=== PATIENT | female | born 1990 | race African-American/Black ===

== ENCOUNTER 2016-04-15 16:53 | Emergency (ER) | payer MEDICAID ==
[~2016-04-15] VITALS: Ht 157.5 cm; Wt 45.0 kg
[~2016-04-15 16:53] MED LIST: CEPH500C3 PO
[2016-04-15 16:54] VITALS: BP 107/71; PULSE 93; RESP 15; TEMP 98.1; O2SAT 99
[2016-04-15 20:28] LABS: BLOOD, URINE NEG (NEG); GLUCOSE,URINE NEG (NEG); KETONE, URINE NEG (NEG); MUCUS URINE FEW /lpf (OCC); NITRITE,URINE NEG (NEG); PH, URINE 6.5 (5.0-8.5); SQUAMOUS EPITHELIAL CELL URINE 8 /hpf (0-5); URINE COLOR YELLOW (YELLW/STRAW)
[2016-04-15] MEDS ORDERED: IBUP-988 PO (21:26)
--- NOTE | 2016-04-15 21:28 | PD ---
HPI Chief Complaint: Abdominal Pain Time Seen by Provider: 19:22 Travel History International Travel<30 days: No Contact w/Intl Traveler<30days: No Traveled to known affect area: No History of Present Illness HPI 25-year-old female 0 complains of right low quadrant abdominal pain for one week. She's had no nausea vomiting or fever. She's had no diarrhea. She reports a history of a UTI about a week and a half ago or so. She received Keflex and Diflucan. She took both however reportedly ran out of the Keflex before was finished. Last menstruation was just under 4 weeks prior. She reports a history of ovarian cysts in the past had similar type of pain however those remaining years prior. She denies a past medical/surgical history otherwise. She has no drug allergies. She does not smoke. She states she drinks alcohol about every other day. Her appetite has been normal lately. She does report some white vaginal discharge, unusual for her. PFSH Past Medical History Medical History: Denies Significant Hx Tetanus Vaccination: Unknown Influenza Vaccination: No ?: Not LMP: MAR 18 2016 Past Surgical History Surgical History: No Previous Surgery Social History Alcohol Use: No Tobacco Use: No Substance Use: No Allergies-Medications (Allergen,Severity, Reaction): Coded Allergies: No Known Allergies (Unverified , 04/15/16) Reported Meds & Prescriptions Reported Meds & Active Scripts Active No Active Prescriptions or Reported Medications Review of Systems Except as stated in HPI: all other systems reviewed are Neg General / Constitutional: No: Fever, Chills Gastrointestinal: Positive: Abdominal Pain Genitourinary: Positive: Pelvic Pain Physical Exam Narrative GENERAL: 25-year-old female pleasant no acute distress GENITOURINARY: External genitalia appear normal. Minimal to moderate somewhat thick white discharge in the vaginal vault. No significant CMT. There is minimal tenderness in the right lower quadrant externally without adnexal mass or tenderness on either side. SKIN: Warm and dry. HEAD: Atraumatic. Normocephalic. EYES: Pupils equal and round. No scleral icterus. No injection or drainage. ENT: No nasal bleeding or discharge. Mucous membranes pink and moist. NECK: Trachea midline. No JVD. CARDIOVASCULAR: Regular rate and rhythm. No murmur appreciated. RESPIRATORY: No accessory muscle use. Clear to auscultation. Breath sounds equal bilaterally. GASTROINTESTINAL: Soft. Minimal tenderness in the right lower quadrant. No rebound. No obturator sign. No pain with percussion on the heels. MUSCULOSKELETAL: No obvious deformities. No clubbing. No cyanosis. No edema. NEUROLOGICAL: Awake and alert. No obvious cranial nerve deficits. Motor grossly within normal limits. Normal speech. PSYCHIATRIC: Appropriate mood and affect; insight and judgment normal. Data Data Last Documented VS Vital Signs Date Time Temp Pulse Resp B/P Pulse Ox O2 Delivery O2 Flow Rate FiO2 04/15/16 16:54 98.1 93 15 107/71 99 Vital signs reviewed Orders Gc And Chlamydia Pcr (04/15/16 19:22) Wet Prep Profile (04/15/16 19:22) Ua Includes Microscopic (04/15/16 19:22) Ed Urine Pregnancytest Poc (04/15/16 19:22) Acetamin-Hydrocod 325-7.5 Mg ([place] 7.5 (04/15/16 21:30) Labs Laboratory Tests Test 04/15/16 04/15/16 19:26 19:50 Urine Color YELLOW Urine Turbidity HAZY Urine pH 6.5 Urine Specific [place] 1.018 Urine Protein NEG mg/dL Urine Glucose (UA) NEG mg/dL Urine Ketones NEG mg/dL Urine Occult Blood NEG Urine Nitrite NEG Urine Bilirubin NEG Urine Urobilinogen LESS THAN 2.0 MG/DL Urine Leukocyte Esterase TRACE Urine WBC 1 /hpf Urine Squamous Epithelial 8 /hpf Cells Urine Mucus FEW /lpf Microscopic Urinalysis Comment Clue Cells (Wet Prep) NONE SEEN Vaginal Trichomonas (Wet Prep) NONE SEEN Vaginal Yeast (Wet Prep) NONE SEEN MDM Medical Decision Making Medical Screen Exam Complete: Yes Emergency Medical Condition: Yes Medical Record Reviewed: Yes Differential Diagnosis IUP, UTI, ectopic , ov torsion, appendicitis, TOA, cervicitis, BV, Trichomoniasis, ov cyst, hernia, mittelschmerz, pain from menstruation Narrative Course The wet prep is negative however there is a fair amount of light discharge on exam Urinalysis shows no UTI The urine is negative Etiology of the pain is unclear. The patient does report in the past episodes of ovarian cysts were similar. Appendicitis is obviously a concern however she has had no nausea vomiting fever or anorexia. Furthermore the pain is present for a week and with direct palpation the area of McBurney's point the patient does not appear to be in pain and does not guard. We discussed return precautions including specific attention over the next 8 hours or so. She is ready for discharge. I do not believe cross sectional imaging would benefit the patient at this point. Diagnosis Primary Impression: Pelvic pain Additional Impression: Vaginal discharge Referrals: Primary Care Physician 1 day Additional Instructions: You have a choice when it comes to health care, and we are glad that you chose [facility]. Hopefully, we have met your expectations on today's visit. You are welcome to return to [facility] at any time, as we are committed to meeting the health care needs of our community. Med/Other Pt SpecificInfo: Prescription(s) given Scripts Ibuprofen (Advil)200 Mg Sme480 Mg PO Q8H 3 Days Ref 0 Prov:Palomo Orta MD 04/15/16 Disposition: 01 DISCHARGE HOME Condition: Stable Palomo Orta MD Apr 15, 2016 21:28
[2016-04-15] MEDS ORDERED: ACETAMINOPHEN/HYDROcodone 325 MG/7.5 MG TAB PO ONE (21:30)
[2016-04-15] MEDS ORDERED: HYDR-3534 PO (21:39)
[2016-04-15 23:28] LABS: CHLAMYDIA PCR NOT DETECTED (NOT DETECT); NEISSERIA PCR NOT DETECTED (NOT DETECT)
== END 2016-04-15 21:47 | disposition home or self-care (01) ==
LOC: NEPE 16:53
DX: R10.2 Pelvic and perineal pain (principal); N89.8 Other specified noninflammatory disorders of vagina
CPT/HCPCS: 81001; 84703; 87210; 87491; 87591; 99284